=== PATIENT | female | born 1935 | race Caucasian/White ===

== ENCOUNTER 2020-04-18 09:57 | Inpatient (IN) | payer OTHER ==
[~2020-04-18] VITALS: Ht 167.6 cm; Wt 72.6 kg
[~2020-04-18 09:57] MED LIST: ASPI-1497 MT; CARV12.545 MT; IRBE300T17 MT; LEVO75TA PO; LOVA40TA73 MT; NIFE-32 MT
[2020-04-18] MEDS ORDERED: DILT240C91 MT (11:04)
[2020-04-18] MEDS ORDERED: KETOROLAC 30MG/ML VIAL IV STA (11:26)
[2020-04-18] MEDS ORDERED: ASPIRIN 81MG TABLET PO ONE (11:30)
[2020-04-18 11:51] LABS: BASOPHILS % 0.5 % (0.0-2.0); EOSINOPHILS % 2.3 % (0.0-5.0); HEMATOCRIT. 40.7 % (36.0-48.0); HEMOGLOBIN. 13.9 g/dL (12.0-16.0); LYMPHOCYTES % 15.2 % (20.0-50.0); MEAN CORPUSCULAR HEMOGLOBIN 30.6 pg (28.0-32.0); MEAN CORPUSCULAR VOLUME 89.3 fL (81.0-99.0); MEAN PLATELET VOLUME 7.2 fl (7.4-10.4); MONOCYTES % 8.6 % (2.0-8.0); NEUTROPHILS % 73.4 % (40.0-76.0); PLATELET 329 x1000/uL (130-400); RED BLOOD CELL COUNT 4.56 mill/uL (4.2-5.4); RED CELL DISTRIBUTION WIDTH 15.1 % (11.6-14.6)
[2020-04-18 11:57] LABS: CHLORIDE 100 mEq/L (98-107)
[2020-04-18 12:01] LABS: PROTHROMBIN TIME 10.1 sec (9.6-11.0)
[2020-04-18] MEDS ORDERED: MORPHINE SULFATE 4 MG/ML CPJ (NOT FOR IM USE) IV ONE (13:30)
[2020-04-18] MEDS ORDERED: NITROGLYCERIN OINT 1GM/INCH UDPKT TD ONE (13:30)
[2020-04-18] MEDS ORDERED: ONDANSETRON HCL 4MG/2ML INJ IV ONE (13:30)
[2020-04-18] MEDS ORDERED: CAPSAICIN 0.075% CREAM 60GM TOP PRN (14:15)
[2020-04-18] MEDS ORDERED: DOCUSATE SODIUM 100MG CAPSULE PO PRN (14:15)
[2020-04-18] MEDS: CARVEDILOL 12.5MG TABLET PO SCH ×2 (14:15→21:37)
[2020-04-18] MEDS: ASPIRIN 81MG EC TABLET PO SCH (14:15)
[2020-04-18] MEDS: NIFEDIPINE XL 60MG TAB PO SCH (14:15)
[2020-04-18] MEDS ORDERED: ACETAMINOPHEN 325MG TABLET PO PRN (14:15)
[2020-04-18] MEDS: LEVOTHYROXINE SODIUM 75MCG TABLET PO SCH ×2 (14:15→14:30)
[2020-04-18] MEDS: ENOXAPARIN 40MG/0.4ML SYR SUBCUT SCH (15:00)
[2020-04-18] MEDS: DILTIAZEM HCL 120MG CAPSULE CD 24HR PO SCH (15:15)
[2020-04-18] MEDS: LOSARTAN POTASSIUM 100 MG TABLET PO SCH (15:15)
[2020-04-18] MEDS: ACYCLOVIR 400 MG TABLET PO SCH ×2 (17:10→21:37)
[2020-04-18] MEDS: HYDROCODONE/ACETAMINOPHEN 5/325MG TABLET PO PRN ×2 (19:05→22:55)
[2020-04-18] MEDS ORDERED: FAMOTIDINE 20MG TABLET PO SCH (21:00)
[2020-04-18] MEDS ORDERED: ATORVASTATIN CALCIUM 40MG TABLET PO SCH (21:00)
[2020-04-18 21:45] VITALS: BP 198/93
[2020-04-18] MEDS ORDERED: ACETAMINOPHEN 500MG TABLET PO PRN (22:28)
[2020-04-18] MEDS ORDERED: SODIUM CHLORIDE 0.45% 1,000 ML IV SCH (22:30)
[2020-04-18] MEDS: LOSARTAN POTASSIUM 50 MG TABLET PO SCH (22:55)
[2020-04-18] MEDS: METOPROLOL TARTRATE 50MG TABLET PO SCH (22:55)
[2020-04-19] VITALS: BP_SYST 154; BP_SYST 198; BP_DIAS 71; BP_DIAS 93
[2020-04-19] MEDS: SODIUM CHLORIDE 0.9% INJ 3ML FLUSH IVF SCH ×2 (05:18→13:08)
[2020-04-19] MEDS: LEVOTHYROXINE SODIUM 75MCG TABLET PO SCH ×2 (05:48→05:59)
[2020-04-19 08:00] VITALS: BP 171/79
[2020-04-19] MEDS: NIFEDIPINE XL 60MG TAB PO SCH (08:07)
[2020-04-19] MEDS: METOPROLOL TARTRATE 50MG TABLET PO SCH (08:07)
[2020-04-19] MEDS: LOSARTAN POTASSIUM 100 MG TABLET PO SCH (08:14)
[2020-04-19] MEDS: LOSARTAN POTASSIUM 50 MG TABLET PO SCH (08:14)
[2020-04-19] MEDS: ASPIRIN 81MG EC TABLET PO SCH (08:16)
[2020-04-19] MEDS: DILTIAZEM HCL 120MG CAPSULE CD 24HR PO SCH (08:17)
[2020-04-19] MEDS: HYDROCODONE/ACETAMINOPHEN 5/325MG TABLET PO PRN ×2 (08:24→16:44)
[2020-04-19] MEDS ORDERED: CEFTRIAXONE 1 G PREMIX 50 ML IV SCH ×2 (09:00→21:00)
[2020-04-19] MEDS: ACYCLOVIR 400 MG TABLET PO SCH ×3 (10:42→16:29)
[2020-04-19 11:00] LABS: CLARITY URINE CLEAR (CLEAR); COLOR URINE YELLOW (YELLOW); KETONES URINE NEGATIVE (NEGATIVE); LEUKOCYTE ESTERASE URINE 2+ (NEGATIVE); NITRITE URINE POSITIVE (NEGATIVE); OCCULT BLOOD URINE 1+ (NEGATIVE); PROTEIN URINE TRACE (NEGATIVE); SPECIFIC GRAVITY URINE 1.012 (1.005-1.030); UROBILINOGEN URINE 0.2 E.U./dL (0.2-1.0)
[2020-04-19 12:00] VITALS: BP 152/66
[2020-04-19] MEDS ORDERED: ONDANSETRON HCL 4MG/2ML INJ IV PRN (12:15)
[2020-04-19] MEDS: ENOXAPARIN 40MG/0.4ML SYR SUBCUT SCH (13:08)
[2020-04-19 16:00] VITALS: BP 117/85
[2020-04-19 16:47] VITALS: BP 152/66
== END 2020-04-19 17:15 | disposition home or self-care (01) | DRG 596 ==
LOC: ER 09:57 → 5WST 13:35 → EDBEDREQ 13:38 → EDBEDREQTM 13:38 → ENRESERV 19:24
PROVIDERS: ADMIT Ophthalmology; ATTEND Ophthalmology
DX: B02.9 Zoster without complications (principal); E03.9 Hypothyroidism, unspecified; I10 Essential (primary) hypertension; M54.9 Dorsalgia, unspecified; R10.9 Unspecified abdominal pain; R82.90 Unspecified abnormal findings in urine; M54.10 Radiculopathy, site unspecified; I48.91 Unspecified atrial fibrillation; E78.5 Hyperlipidemia, unspecified; Z88.8 Allergy status to other drugs, medicaments and biological substances; Z98.891 History of uterine scar from previous surgery; Z87.891 Personal history of nicotine dependence; Z88.6 Allergy status to analgesic agent
CPT/HCPCS: 36415; 71045; 80053; 81003; 83880; 84484; 85025; 87077; 87186; 93005; 96374; 99285; J0696; J1650; J2270; J2405

== ENCOUNTER 2023-11-26 23:18 | Emergency (ER) | payer OTHER ==
[~2023-11-26] VITALS: Ht 165.1 cm; Wt 72.0 kg
[~2023-11-26 23:18] MED LIST changes: -CARV12.545 MT; +HYDR-4135 PO; +NIFE-32 PO
[2023-11-26 23:41] VITALS: TEMP 98.6; O2SAT 100
[2023-11-27 00:24] LABS: BASOPHILS % 0.5 % (0.0-2.0); EOSINOPHILS % 0.4 % (0.0-5.0); HEMATOCRIT. 35.3 % (36.0-48.0); HEMOGLOBIN. 11.9 g/dL (12.0-16.0); LYMPHOCYTES % 15.7 % (20.0-50.0); MEAN CORPUSCULAR HEMOGLOBIN 30.9 pg (28.0-32.0); MEAN CORPUSCULAR HGB CONC 33.8 g/dL (31.0-37.0); MEAN CORPUSCULAR VOLUME 91.6 fL (81.0-99.0); MEAN PLATELET VOLUME 7.2 fl (7.4-10.4); MONOCYTES % 10.2 % (2.0-8.0); NEUTROPHILS % 73.2 % (40.0-76.0); PLATELET 239 x1000/uL (130-400); RED BLOOD CELL COUNT 3.85 mill/uL (4.2-5.4); RED CELL DISTRIBUTION WIDTH 15.1 % (11.6-14.6); WHITE BLOOD COUNT 6.9 x1000/uL (4.5-11.0)
[2023-11-27 00:38] LABS: ALANINE AMINOTRANSFERASE 12 IU/L (10-49); ALBUMIN 3.7 g/dL (3.2-4.8); ASPARTATE AMINOTRANSFERASE 20 IU/L (<34); BILIRUBIN TOTAL 0.4 mg/dL (0.1-1.0); CALCIUM 8.9 mg/dL (8.7-10.4); CARBON DIOXIDE 24 mEq/L (21-32); CHLORIDE 99 mEq/L (98-107); CREATININE 0.6 mg/dL (0.6-1.0); GLUCOSE 112 mg/dL (70-105); POTASSIUM 3.6 mEq/L (3.5-5.1); PROTEIN TOTAL 6.6 g/dL (6.0-8.3); SODIUM 130 mEq/L (136-145); TROPONIN I HIGH SENSITIVITY 10 ng/L (3.0-34); UREA NITROGEN BLOOD 9 mg/dL (9-23)
[2023-11-27] MEDS: ONDANSETRON HCL 4MG/2ML INJ IV STA (01:01)
[2023-11-27 02:08] LABS: TROPONIN I HIGH SENSITIVITY 10 ng/L (3.0-34)
[2023-11-27] MEDS ORDERED: MECL-217 MT (03:06)
[2023-11-27 03:48] VITALS: BP 159/77; PULSE 69; RESP 19
== END 2023-11-27 03:52 | disposition home or self-care (01) ==
LOC: ER 23:18
DX: R42 Dizziness and giddiness (principal); I48.91 Unspecified atrial fibrillation; F41.9 Anxiety disorder, unspecified; I10 Essential (primary) hypertension; Z79.899 Other long term (current) drug therapy
CPT/HCPCS: 36415; 71045; 80053; 84484; 85025; 99284